=== PATIENT | female | born 1990 | race Caucasian/White ===

== ENCOUNTER 2021-02-08 19:40 | Emergency (ER) | payer OTHER ==
[2021-02-08 19:45] VITALS: BP 125/74; PULSE 89; TEMP 98; BMI 19.3
== END 2021-02-08 21:44 | disposition home or self-care (01) ==
LOC: JERFT 19:40
DX: F41.9 Anxiety disorder, unspecified (principal)
CPT/HCPCS: 99283-25

== ENCOUNTER 2021-09-13 16:15 | Emergency (ER) | payer OTHER ==
[2021-09-13 16:42] VITALS: BP 104/69; PULSE 54; TEMP 98.6
== END 2021-09-13 21:41 | disposition home or self-care (01) ==
LOC: JERFT 16:15
DX: T83.9XXA Unspecified complication of genitourinary prosthetic device, implant and graft, initial encounter (principal)
CPT/HCPCS: 76830-TC; 99283-25